=== PATIENT | male | born 1965 | race Caucasian/White ===

== ENCOUNTER 2025-01-20 07:24 | Outpatient (CLI) | payer BC, SELFPAY ==
[2025-01-20] VITALS (7 sets, daily range): BP systolic 138–176; BP diastolic 75–107; PULSE 68–85; RESP 17–23; TEMP 37; O2SAT 96–97
--- NOTE | 2025-01-20 06:00 | DI.RAD_ITS ---
Exam(s) XR PAIN CLINIC LUMBAR SP 2V EXAM: XR PAIN CLINIC LUMBAR SP 2V CLINICAL HISTORY: DX: Lumbar Radiculopathy TECHNIQUE: 2D and realtime digital imaging was performed. CONTRAST MATERIAL: Refer to procedure report. COMPARISON: No exams were available for comparison FINDINGS: Fluoroscopy was provided for Dr. Daniels during the performance of a left transforaminal epidural steroid injection. Please refer to the procedure report for complete details. Ka,r=15.6 mGy IMPRESSION: RADIATION DOSE DELIVERED: 0.0 0.0 0
[2025-01-20] MEDS: Nerve Block Tray 1 EACH MC (08:28)
[2025-01-20] MEDS: Omnipaque 240 MG/ML 50 ML BTL IJ (08:28)
[2025-01-20] MEDS: Dexamethasone Sod. Phos./Pres-Free 10 MG/ML VIAL IJ (08:29)
--- NOTE | 2025-01-20 10:20 | PDOC.PAIN_ITS ---
Date of service: 01/20/25 Time of Service: 08:30 Pain Managment Procedure Note Procedure Note Procedure Note: PROCEDURE NOTE LEFT L5 TRANSFORAMINAL EPIDURAL STEROID INJECTION Chief Complaint: LEFT leg pain. Date of Service: January 20, 2025 Patient: RAPHAEL AVALOS Provider: Tanner Daniels DO, MPH RAPHAEL AVALOS has been referred to the [facility] for a transforaminal epidural steroid injection. Pre-operative diagnosis: Lumbosacral Radiculopathy ICD-10 M54.17 Post-operative diagnosis: Same Pre-Procedure Pain: VAS= 9/10 Comments: I previously evaluated the patient in our clinic and their symptoms remain the same as they were at that time. RAPHAEL was interviewed and the medical record reviewed. There were no medical, pharmacologic, radiographic or other structural contraindications to attempting a fluoroscopically-guided transforaminal lumbar epidural steroid injection. The risks, benefits, and potential side effects were reviewed with the patient. Risks include, but are not limited to, [id number] headache, infection, bleeding, nerve injury, spinal cord damage, allergic reaction, possible increase in symptoms over the ensuing 24 to 48 hours, paralysis, and . The patient appeared to understand, questions were answered to the patient?s satisfaction and the patient agreed to proceed. Once I obtained informed verbal consent, the printed consent form was signed by the patient and myself. A standard time-out procedure was performed. RAPHAEL was placed in the prone position on the fluoroscopy table and automated blood pressure cuff, three lead EKG, and pulse oximeter were applied. The skin entry point for entering/approaching the left L5 space for the transforaminal epidural steroid injection was marked. Following thorough chlorhexadine preparation of the skin and draping, 2 ml of 1% lidocaine was infiltrated into the skin over the entry point and subcutaneous tissues. Under fluoroscopic guidance, in ipsilateral oblique view, a co-axial approach using a 3.5 22G spinal needle was advanced to the base of the L5 pedicle. The needle was advanced to the superio-posterior aspect of the neural foramen under lateral view. Oblique and AP views were rechecked. Under AP and lateral views, 1 ml of Omnipaque-240 was injected while visualized with fluoroscopy. There was no evidence of intravascular or intrathecal uptake, the epidural space was delineated. Next 1.5 ml of preservative-free Dexamethasone (10 mg/ml) was injected after negative aspiration. This was followed by 1 ml of preservative- free 1% lidocaine. (49 mls of Omnipaque-240 was wasted) There was no unusual discomfort expressed by RAPHAEL. The needle was withdrawn without difficulty. RAPHAEL was observed and was without hemodynamic, neurologic, or allergic reactions.? Fluoroscopic images were digitally archived. RAPHAEL's vital signs were stable throughout the procedure and were as recorded in the docflowsheet by the nursing staff.? If given, dosages of intravenous drugs for anxiolysis and analgesia were documented in MAR. Follow up plans and appointments were discussed with RAPHAEL. Post procedure instruction was given as documented in nursing records and having met discharge criteria RAPHAEL was discharged from the [facility]. COMMENTS: Post-procedure pain: VAS= 3/10. RAPHAEL to contact [facility] as needed. If at least 50% improvement in pain and/or function for at least 3 months is achieved, this procedure can be repeated. I personally performed this entire procedure. TANNER DANIELS DO, MPH ABPMR-subspecialty board certification in Pain Medicine [facility] Coding Conscious Sedation used for procedure: No CPT Codes: Transforaminal Lumbar/Sacral (includes fluoro) - 90561 ([id number] ~G) Additional Codes: Date of Service () Diagnoses: Transforaminal epidural steroid injection
== END 2025-01-20 07:25 | disposition home or self-care (01) ==
LOC: PC 07:25
PROVIDERS: PCP Family Medicine; Visit Provider Preventive Medicine Occupational Medicine
DX: M54.17 Radiculopathy, lumbosacral region (principal)
CPT/HCPCS: 64483; 72100; J1100; Q9967